=== PATIENT | male | born 1990 | race Caucasian/White ===

== ENCOUNTER 2018-05-07 00:12 | Emergency (ER) | payer OTHER ==
[~2018-05-07] VITALS: Ht 170.2 cm; Wt 79.2 kg
[2018-05-07 00:17] VITALS: BP 137/83; PULSE 101; RESP 19; Ht 170.2 cm; Wt 79.2 kg
[2018-05-07] MEDS ORDERED: KETOROLAC 30 MG INJ IM STA (02:59)
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
[2018-05-07] MEDS ORDERED: HYDROCODONE/APAP (10/325) TAB PO ONE (03:00)
[2018-05-07] MEDS ORDERED: IBUP800T48 PO (04:37)
== END 2018-05-07 04:59 | disposition home or self-care (01) ==
LOC: FTE 00:12
DX: S93.401A Sprain of unspecified ligament of right ankle, initial encounter (principal); W01.0XXA Fall on same level from slipping, tripping and stumbling without subsequent striking against object, initial encounter; Y92.410 Unspecified street and highway as the place of occurrence of the external cause
CPT/HCPCS: 73610; 73630; 96372; J1885; Z7502; Z7610